=== PATIENT | female | born 1990 | race African-American/Black ===

== ENCOUNTER 2019-04-03 16:28 | Emergency (ER) | payer OTHER ==
[~2019-04-03] VITALS: Ht 157.5 cm; Wt 63.6 kg
[~2019-04-03 16:28] MED LIST: IBUPROFEN600 MG PO; PRENATAL1 TA1
[2019-04-03] MEDS ORDERED: FLEXERIL PO (18:54)
[2019-04-03 19:15] VITALS: BP 121/74
== END 2019-04-03 19:15 | disposition home or self-care (01) | DRG 552 ==
LOC: ED 16:28
DX: S16.1XXA Strain of muscle, fascia and tendon at neck level, initial encounter (principal); S80.12XA Contusion of left lower leg, initial encounter; S50.12XA Contusion of left forearm, initial encounter; S80.02XA Contusion of left knee, initial encounter; S51.811A Laceration without foreign body of right forearm, initial encounter; V47.6XXA Car passenger injured in collision with fixed or stationary object in traffic accident, initial encounter